=== PATIENT | female | born 1990 | race Caucasian/White ===

== ENCOUNTER 2023-10-27 07:45 | Emergency (ER) | payer OTHER ==
[2023-10-27] MEDS ORDERED: Ketorolac Tromethamine 30 MG (1 mL) VIAL ONE (09:05)
[2023-10-27] MEDS ORDERED: predniSONE 20 MG TAB ONE (09:06)
== END 2023-10-27 09:17 | disposition home or self-care (01) ==
LOC: CSHERS 07:45
DX: M54.12 Radiculopathy, cervical region (principal); G62.9 Polyneuropathy, unspecified
CPT/HCPCS: 96372; 99283; J1885; J7512

== ENCOUNTER 2024-02-21 15:02 | Outpatient (CLI) | payer OTHER | END 2024-02-21 15:03 | disposition home or self-care (01) | LOC: CSHMRI 15:02 | PROVIDERS: ATTEND Podiatrist Foot & Ankle Surgery | DX: M76.72 Peroneal tendinitis, left leg (principal); M65.862 Other synovitis and tenosynovitis, left lower leg; M72.2 Plantar fascial fibromatosis ==

== ENCOUNTER 2024-04-09 21:48 | Emergency (ER) | payer OTHER ==
[2024-04-09] MEDS ORDERED: Ondansetron ODT 4 MG TAB ONE (23:28)
[2024-04-10] MEDS ORDERED: Metoclopramide HCl 10 MG (2 mL) VIAL ONE (00:01)
[2024-04-10] MEDS ORDERED: Meclizine HCl 25 MG TAB ONE ×2 (00:05→00:07)
[2024-04-10] MEDS ORDERED: diphenhydrAMINE 50 MG/ML VIAL ONE (00:05)
[2024-04-10 00:51] LABS: #Basophils 0.09 10x3/uL (0.0-0.2); #Eosinphils 0.12 10x3/uL (0.0-0.5); #Monocytes 0.46 10x3/uL (0.0-1.1); #Neutrophils 4.44 10x3/uL (1.5-8.4); %Basophils 1.2 % (0.0-2.0); %Eosinophils 1.6 % (0.0-6.0); %Monocytes 6.3 % (0.0-10.0); %Neutrophils 60.8 % (40.0-75.0); Hematocrit 40.5 % (34.9-44.5); Hemoglobin 14.1 g/dL (12.0-15.5); Mean Corpuscular HGB CONC 34.8 g/dL (32.0-36.0); Mean Corpuscular Hemoglobin 29.4 pg (27.0-33.0); Mean Corpuscular Volume 84.6 fL (81.6-98.3); Mean Platelet Volume 10.8 fL (7.4-10.4); Platelet Count 191 10x3/uL (150-450); Red Blood Cell (RBC) Count 4.79 10x6/uL (3.90-5.03); White Blood Cell (WBC) Count 7.3 10x3/uL (3.5-10.5)
[2024-04-10 00:56] LABS: BHCG - Serum Negative (NEGATIVE); Pregs Control Background? CLEAR/WHITE (CLR/WHITE); Pregs Control Bar Appear? YES (CONTROL BAR)
[2024-04-10 01:07] LABS: ALT (SGPT) 16 U/L (8-55); AST (SGOT) 17 U/L (5-34); Albumin 3.9 g/dL (3.5-5.0); Alkaline Phosphatase 61 U/L (40-110); Anion Gap 15 mmol/L (10-20); BUN (Urea Nitrogen) 11 mg/dL (7.0-18.7); Bilirubin, Total 0.4 mg/dL (0.2-1.2); Calc. Creatinine Clearance 0 mL/min (70-130); Calcium 9.1 mg/dL (7.8-10.44); Carbon Dioxide 22 mmol/L (22-29); Chloride 107 mmol/L (98-107); Estimated GFR 93; Globulin 2.8 g/dL (2.4-3.5); Glucose 83 mg/dL (70-105); Magnesium 1.8 mg/dL (1.6-2.6); Potassium 3.9 mmol/L (3.5-5.1); Protein, Total 6.7 g/dL (6.0-8.3); Sodium 140 mmol/L (136-145)
[2024-04-10] MEDS ORDERED: Ketorolac Tromethamine 30 MG (1 mL) VIAL ONE (01:30)
[2024-04-10] MEDS ORDERED: Magnesium 2 GM/50 ML BAG (IN WATER) ONE (01:30)
== END 2024-04-10 02:52 | disposition home or self-care (01) ==
LOC: CSHERS 21:48
DX: S93.402A Sprain of unspecified ligament of left ankle, initial encounter (principal); R42 Dizziness and giddiness; R29.700 NIHSS score 0; M54.16 Radiculopathy, lumbar region; M51.27 Other intervertebral disc displacement, lumbosacral region; G62.9 Polyneuropathy, unspecified; X50.9XXA Other and unspecified overexertion or strenuous movements or postures, initial encounter; Z55.6 Problems related to health literacy
CPT/HCPCS: 70450; 80053; 83735; 84703; 85025; 96365; 96375; J1200; J1885; J2765; J3475; Q0162

== ENCOUNTER 2024-06-03 15:40 | Emergency (ER) | payer OTHER ==
[~2024-06-03 15:40] MED LIST: Iopamidol 370 76% 100 ML VIAL ONE
[2024-06-03] MEDS ORDERED: diphenhydrAMINE 50 MG/ML VIAL ONE (16:21)
[2024-06-03] MEDS ORDERED: Prochlorperazine 10 MG/2 ML VIAL ONE (16:21)
[2024-06-03 16:57] LABS: INR-International Normal Ratio 0.9; PTT 28.1 sec (22.0-33.0); Prothrombin Time 10.3 sec (9.5-12.1)
[2024-06-03 17:01] LABS: Anion Gap 10 mmol/L (10-20); BUN (Urea Nitrogen) 10 mg/dL (7.0-18.7); Calc. Creatinine Clearance 0 mL/min (70-130); Calcium 9.6 mg/dL (7.8-10.44); Carbon Dioxide 26 mmol/L (22-29); Chloride 107 mmol/L (98-107); Estimated GFR 90; Glucose 88 mg/dL (70-105); Potassium 3.9 mmol/L (3.5-5.1); Sodium 139 mmol/L (136-145)
[2024-06-03 17:14] LABS: #Basophils 0.09 10x3/uL (0.0-0.2); #Eosinphils 0.11 10x3/uL (0.0-0.5); #Monocytes 0.45 10x3/uL (0.0-1.1); #Neutrophils 4.48 10x3/uL (1.5-8.4); %Basophils 1.3 % (0.0-2.0); %Eosinophils 1.6 % (0.0-6.0); %Monocytes 6.4 % (0.0-10.0); %Neutrophils 63.4 % (40.0-75.0); Hematocrit 40.2 % (34.9-44.5); Hemoglobin 14.1 g/dL (12.0-15.5); Mean Corpuscular HGB CONC 35.1 g/dL (32.0-36.0); Mean Corpuscular Hemoglobin 29.5 pg (27.0-33.0); Mean Corpuscular Volume 84.1 fL (81.6-98.3); Mean Platelet Volume 11.1 fL (7.4-10.4); Platelet Count 195 10x3/uL (150-450); RBC Distribution Width 13.3 % (11.5-14.5); Red Blood Cell (RBC) Count 4.78 10x6/uL (3.90-5.03); White Blood Cell (WBC) Count 7.1 10x3/uL (3.5-10.5)
[2024-06-03] MEDS ORDERED: Ondansetron PF 4 MG/2 ML Vial ONE (17:33)
== END 2024-06-03 18:54 | disposition home or self-care (01) ==
LOC: CSHERS 15:40
DX: G43.109 Migraine with aura, not intractable, without status migrainosus (principal)
CPT/HCPCS: 36416; 70450; 70496; 70498; 80048; 85025; 85610; 85730; 96374; 96375; J0780; J1200; J2405; Q9967

== ENCOUNTER 2025-07-16 18:10 | Emergency (ER) | payer OTHER ==
[2025-07-16] MEDS ORDERED: Lidocaine 1% w/Epinephrine 1:200K 30 ML VIAL ONE (19:01)
== END 2025-07-16 19:54 | disposition home or self-care (01) ==
LOC: CSHERS 18:10
DX: K64.5 Perianal venous thrombosis (principal)
CPT/HCPCS: 46050